=== PATIENT | female | born 1995 | race Caucasian/White ===

== ENCOUNTER 2022-11-11 10:40 | Outpatient (OUT) | payer OTHER, SELFPAY ==
--- NOTE | 2022-11-11 10:49 | US_ITS ---
[address] [address] Patient Name: ALE TRINH MRN: [id number] date: 1995 Sex: F Assigned Patient Location: [facility] Current Patient Location: [facility] Accession/Order Number: [id number] Exam Date: 11/11/2022 11:00 Report Date: 11/11/2022 11:49 At the request of: ROBIN HAYS Procedure: US OB BPP w non-stress EXAM: US OB BPP w non-stress HISTORY: decreased movement COMPARISON: Ultrasound growth 11/04/2022 TECHNIQUE: Transabdominal sonographic evaluation. BREATHING MOVEMENTS: 2.0 GROSS BODY MOVEMENTS: 2.0 TONE: 2.0 QUALITATIVE AMNIOTIC FLUID VOLUME: 2.0 PRESENTATION: CEPHALIC HEART RATE: 143.6 bpm bpm. AMNIOTIC FLUID VOLUME: 11.8 cm GESTATIONAL AGE: 36 weeks 0 days CONCLUSION: Total biophysical profile score 8.0. Electronically authenticated by: KIT AUSTIN Date: 11/11/2022 11:49
[2022-11-11 10:52] VITALS: BP 129/80; PULSE 101; RESP 18; TEMP 36.8
[2022-11-11 10:53] VITALS: BP 139/99; PULSE 93
[2022-11-11 10:55] VITALS: BP 129/80; PULSE 101
== END 2022-11-11 11:05 | disposition home or self-care (01) ==
LOC: FBC 11:52 → LAB 11-12 12:53
PROVIDERS: PCP Internal Medicine Cardiovascular Disease; Visit Provider Obstetrics & Gynecology
DX: O36.8130 Decreased fetal movements, third trimester, not applicable or unspecified (principal); Z3A.35 35 weeks gestation of pregnancy
CPT/HCPCS: 59025; 76818; 87081

== ENCOUNTER 2022-11-11 22:35 | Outpatient (REF) | payer OTHER, SELFPAY | END 2022-11-11 22:36 | disposition home or self-care (01) | LOC: LAB 22:35 | PROVIDERS: PCP Internal Medicine Cardiovascular Disease; Visit Provider Obstetrics & Gynecology | DX: Z34.93 Encounter for supervision of normal pregnancy, unspecified, third trimester (principal) | CPT/HCPCS: 87081 ==

== ENCOUNTER 2022-11-17 05:20 | Observation (INO) | payer OTHER, SELFPAY ==
[2022-11-17 05:43] VITALS: BP 137/82; PULSE 107
[2022-11-17 06:19] LABS: Bilirubin Urine NEGATIVE (NEGATIVE); Blood Urine TRACE-I (NEGATIVE); Clarity Urine CLEAR (CLEAR); Color Urine LT. YELLOW (YELLOW); Glucose Urine UA NEGATIVE (NEGATIVE); Ketones Urine NEGATIVE (NEGATIVE); Leukocyte Esterase Urine SMALL (NEGATIVE); Nitrite Urine NEGATIVE (NEGATIVE); Protein Urine NEGATIVE (NEG/TRACE); Specific Gravity Urine <=1.005 (1.005-1.025); Urine Microscopic Indicated YES; Urobilinogen Urine 0.2 EU/dL (0.2-1.0)
[2022-11-17 06:28] LABS: Bacteria Urine NONE SEEN #/HPF (NONE SEEN); Crystals Seen? None Seen #/HPF (None Seen); Mucus Urine NONE SEEN (NONE SEEN); RBC Urine 0-2 #/HPF (0-2); Squamous Epithelial Cell Urine MODERATE #/LPF (NONE/RARE)
[2022-11-17 06:29] LABS: Cast Seen? NONE SEEN #/LPF (NONE SEEN); Urine Culture Indicated YES
--- NOTE | 2022-11-17 08:27 | W.PC.ACHO ---
Registration Status: ADM IN Primary Language: Preferred Language: Active Medications Generic Name Dose Route Start Last Admin Trade Name Dimitris PRN Reason Stop Dose Admin Carboprost Tromethamine 250 mcg 11/17/22 06:51 Carboprost Tromethamine 250 Mcg/Ml 1 Ml Vial IM Q15M PRN Bleeding Sodium Chloride 1,000 mls @ 125 mls/hr 11/17/22 07:00 Sodium Chloride 0.9% 1,000 Ml IV .Q8H MARÍA Oxytocin 10 unit/ Sodium 501 mls @ 6.012 mls/hr 11/17/22 07:00 Chloride IV Q24H MARÍA 2 MILLIUNIT/MIN Lidocaine 5 ml 11/17/22 06:51 Lidocaine Viscous 2% 15 Ml Topical Solution TOPICAL ONCE PRN Pain Lidocaine 1 ml 11/17/22 06:51 Lidocaine Hcl 1% 200 Mg/20 Ml Mdv INJ ONCE PRN Pain Methylergonovine Maleate 0.2 mg 11/17/22 06:51 Methylergonovine Maleate 0.2 Mg/Ml Ampule IM ONCE PRN Uterine Contractility/Contract Methylergonovine Maleate 0.2 mg 11/17/22 06:51 Methylergonovine Maleate 0.2 Mg Tablet PO Q4H PRN Uterine Contractility/Contract Misoprostol 600 mcg 11/17/22 06:51 Misoprostol 100 Mcg Tablet PO ONCE PRN Uterine Bleeding Misoprostol 800 mcg 11/17/22 06:51 Misoprostol 100 Mcg Tablet SL ONCE PRN Uterine Bleeding Misoprostol 1,000 mcg 11/17/22 06:51 Misoprostol 100 Mcg Tablet [place] ONCE PRN Uterine Bleeding Nalbuphine HCl 10 mg 11/17/22 06:51 Nalbuphine Hcl 10 Mg/Ml Ampule IV Q3H PRN Pain Ondansetron HCl 4 mg 11/17/22 06:51 Ondansetron Pf 4 Mg/2 Ml Vial IV Q6H PRN Nausea And Vomiting Ondansetron HCl 4 mg 11/17/22 06:51 Ondansetron 4 Mg Rapdis Tablet SL Q6H PRN Nausea And Vomiting Oxytocin 10 unit 11/17/22 06:51 Oxytocin 100 Unit/10 Ml Vial IM ONCE PRN Uterine Bleeding Diet Category Date Time Status Clear Liquid Diet Diet 11/17/22 Breakfast Active Consults Category Date Time Status Consult to Anesthesiology Routine Cons 11/17/22 Ordered
--- NOTE | 2022-11-17 08:31 | PC.NURSE ---
0720 EFM off, up to BR and then transferred to room 255 with belongings and family. Discussed level of comfort, pt states contractions spacing out. Reviewed gestational age and labor signs and discussed if pt would like to walk or use other comfort measures, states would like to nap.
--- NOTE | 2022-11-17 09:03 | PC.NURSE ---
1944 dr villela calls in and updated, states to allow pt to sleep will see if is truly laboring as time progresses
--- NOTE | 2022-11-17 09:58 | PC.NURSE ---
0974 pt continues to sleep
[2022-11-17 10:31] VITALS: BP 160/112; PULSE 94
[2022-11-17 10:44] VITALS: TEMP 36.3
[2022-11-17 10:46] VITALS: BP 159/89; PULSE 96
[2022-11-17 11:12] LABS: Amphetamine Screen Urine NEGATIVE (NEGATIVE); Barbiturates Screen Urine NEGATIVE (NEGATIVE); Benzodiazepines Screen Urine NEGATIVE (NEGATIVE); Buprenorphine Screen Urine NEGATIVE (NEGATIVE); Cannabinoid Screen Urine NEGATIVE (NEGATIVE); Cocaine Screen Urine NEGATIVE (NEGATIVE); Methadone Screen Urine NEGATIVE (NEGATIVE); Methamphetamines Screen Urine NEGATIVE (NEGATIVE); Opiate Screen Urine NEGATIVE (NEGATIVE); Oxycodone Screen Urine NEGATIVE (NEGATIVE); Phencyclidine Screen Urine NEGATIVE (NEGATIVE); Tricyclic Antidepressant Urine NEGATIVE (NEGATIVE)
[2022-11-17 11:47] VITALS: BP 114/56; PULSE 89
== END 2022-11-17 12:20 | disposition home or self-care (01) ==
PROVIDERS: Admitting Provider Obstetrics & Gynecology; PCP Internal Medicine Cardiovascular Disease; Visit Provider Obstetrics & Gynecology
DX: O47.9 False labor, unspecified (principal); O30.009 Twin pregnancy, unspecified number of placenta and unspecified number of amniotic sacs, unspecified trimester; Z3A.00 Weeks of gestation of pregnancy not specified
CPT/HCPCS: 80307; 81003; 81015; 85027; 86850; 86900; 86901; 87086; G0378; G0379

== ENCOUNTER 2022-11-24 12:38 | Inpatient (IN) | payer OTHER, SELFPAY ==
[2022-11-24] VITALS (37 sets, daily range): BP systolic 118–190; BP diastolic 57–104; PULSE 81–116; RESP 16; TEMP 36.4–36.7
[2022-11-24 13:17] LABS: Hematocrit 38.9 % (36.0-48.0); Hemoglobin 13.2 g/dL (12.0-16.0); Mean Corpuscular HGB Conc 33.9 g/dL (29.9-35.2); Mean Corpuscular Hemoglobin 31.6 pg (26.7-34.0); Mean Corpuscular Volume 93.1 fL (81.0-99.0); Platelet Count 218 10^3/uL (150-450); Red Blood Count 4.18 10^6/uL (4.20-5.40); Red Cell Distribution Width 14.5 % (11.0-15.0); White Blood Count 14.7 10^3/uL (4.0-11.0)
[2022-11-24 13:33] LABS: Amphetamine Screen Urine NEGATIVE (NEGATIVE); Barbiturates Screen Urine NEGATIVE (NEGATIVE); Benzodiazepines Screen Urine NEGATIVE (NEGATIVE); Buprenorphine Screen Urine NEGATIVE (NEGATIVE); Cannabinoid Screen Urine NEGATIVE (NEGATIVE); Cocaine Screen Urine NEGATIVE (NEGATIVE); Methadone Screen Urine NEGATIVE (NEGATIVE); Methamphetamines Screen Urine NEGATIVE (NEGATIVE); Opiate Screen Urine NEGATIVE (NEGATIVE); Oxycodone Screen Urine NEGATIVE (NEGATIVE); Phencyclidine Screen Urine NEGATIVE (NEGATIVE); Tricyclic Antidepressant Urine NEGATIVE (NEGATIVE)
[2022-11-24] MEDS: 0.9 % SODIUM CHLORIDE 1,000 ML 1000 ML IV (13:43)
[2022-11-24] MEDS: FENTANYL CITRATE/PF 100 MCG/2 ML VIAL EPIDURAL (14:57)
[2022-11-24] MEDS: 0.9 % SODIUM CHLORIDE 1,000 ML 125 ML IV (14:58)
[2022-11-24] MEDS: ROPIVACAINE HCL/PF 400 MG/200 ML PREMIX 6 MG EPIDURAL (14:58)
--- NOTE | 2022-11-24 17:48 | PM.OBPRCVD ---
Procedure Intrapartal events: None Induction method: none Delivery augmentation: rupture of membranes Delivery monitor: external FHT and external uterine Route of delivery: Episiotomy Description: none Laceration description: none Estimated blood loss (mL): 200 Anesthesia type: Epidural Disposition: floor Delivery date: 11/24/22 Gender: male presentation: vertex Placental delivery description: Spontaneous cord description: 3 Vessels
--- NOTE | 2022-11-24 19:25 | W.PC.ACHO ---
Registration Status: ADM IN Primary Language: [place] Preferred Language: [place] Report given to Alissa Torres RN. Active Medications Generic Name Dose Route Start Last Admin Trade Name Freq PRN Reason Stop Dose Admin Acetaminophen 650 mg 11/24/22 17:49 Acetaminophen 325 Mg Tablet PO Q6H PRN Mild Pain Al Hydroxide/Mg Hydroxide 2,400 mg 11/24/22 17:49 Magnesium Hydroxide 2,400 Mg/10 Ml Oral.Susp PO Q6H PRN Dyspepsia Benzocaine/Menthol 1 applic 11/24/22 17:49 Benzocaine/Menthol 85 Gram Bottle TOPICAL Q4H PRN Pain Carboprost Tromethamine 250 mcg 11/24/22 12:53 Carboprost Tromethamine 250 Mcg/Ml 1 Ml Vial IM Q15M PRN Bleeding Diphenhydramine HCl 25 mg 11/24/22 13:32 Diphenhydramine Hcl 50 Mg/Ml (1ml) Vial IV Q6H PRN Itching Docusate Sodium 100 mg 11/25/22 09:00 Docusate Sodium 100 Mg Capsule PO BID AMRÍA Ephedrine Sulfate 5 mg 11/24/22 13:32 Ephedrine Sulfate 50 Mg/Ml Vial IV Q5M PRN Blood Pressure - Low Fentanyl Citrate 100 mcg 11/24/22 13:32 11/24/22 14:57 Fentanyl Citrate/Pf 100 Mcg/2 Ml Vial EPIDURAL 100 mcg Q4H PRN Administration Pain Sodium Chloride 1,000 mls @ 125 mls/hr 11/24/22 13:00 11/24/22 14:58 Sodium Chloride 0.9% 1,000 Ml IV 125 mls/hr .Q8H MARÍA Administration Oxytocin 10 unit/ Sodium 501 mls @ 6.012 mls/hr 11/24/22 13:00 Chloride IV Q24H MARÍA 2 MILLIUNIT/MIN Oxytocin 20 unit/ Sodium 1,002 mls @ 125 mls/hr 11/24/22 13:00 Chloride IV ONCE PRN Bleeding Protocol Ropivacaine/Sodium Chloride 400 mg in 200 mls @ 6 mls/hr 11/24/22 13:45 11/24/22 14:58 Naropin 0.2% 400 Mg/200 Ml Bag EPIDURAL 6 mls/hr Q24H MARÍA 6 mls/hr Administration Oxytocin 20 unit/ Sodium 1,002 mls @ 125 mls/hr 11/24/22 18:00 Chloride IV 11/25/22 01:59 Q8H MARÍA Ibuprofen 600 mg 11/24/22 17:49 Ibuprofen 600 Mg Tablet PO Q6H PRN Moderate Pain Lidocaine 5 ml 11/24/22 12:53 Lidocaine Viscous 2% 15 Ml Topical Solution TOPICAL Q5M PRN Pain Lidocaine 1 ml 11/24/22 13:08 Lidocaine Hcl 1% 200 Mg/20 Ml Mdv INJ ONCE PRN Pain Lidocaine 5 ml 11/24/22 13:32 Lidocaine Hcl 2% Pf 100 Mg/5 Ml Vial INJ Q1H PRN Pain Methylergonovine Maleate 0.2 mg 11/24/22 12:53 Methylergonovine Maleate 0.2 Mg Tablet PO Q4H PRN Uterine Contractility/Contract Methylergonovine Maleate 0.2 mg 11/24/22 12:53 Methylergonovine Maleate 0.2 Mg/Ml Ampule IM ONCE PRN Uterine Contractility/Contract Misoprostol 600 mcg 11/24/22 12:53 Misoprostol 100 Mcg Tablet PO ONCE PRN Uterine Bleeding Misoprostol 800 mcg 11/24/22 12:53 Misoprostol 100 Mcg Tablet SL ONCE PRN Uterine Bleeding Misoprostol 1,000 mcg 11/24/22 12:53 Misoprostol 100 Mcg Tablet GA ONCE PRN Uterine Bleeding Nalbuphine HCl 10 mg 11/24/22 12:53 Nalbuphine Hcl 10 Mg/Ml Ampule IV Q3H PRN Pain Ondansetron HCl 4 mg 11/24/22 12:53 Ondansetron Pf 4 Mg/2 Ml Vial IV Q6H PRN Nausea And Vomiting Ondansetron HCl 4 mg 11/24/22 12:53 Ondansetron 4 Mg Rapdis Tablet SL Q6H PRN Nausea And Vomiting Oxytocin 10 unit 11/24/22 12:53 Oxytocin 100 Unit/10 Ml Vial IM ONCE PRN Uterine Bleeding Senna 17.2 mg 11/24/22 20:00 Sennosides 8.6 Mg Tablet PO QHS PRN Constipation Simethicone 80 mg 11/24/22 17:49 Simethicone 80 Mg Tab.Chew PO QID PRN Abdominal Distention Temazepam 15 mg 11/24/22 20:00 Temazepam 15 Mg Capsule PO BEDTIME PRN Sleep Witch Meghan/Glycerin 1 each 11/24/22 17:49 Glycerin/Witch Meghan 1 Each Jar TOPICAL Q6H PRN Pain Diet Category Date Time Status Regular Consistency Diet Diet 11/24/22 Dinner Active Consults Category Date Time Status Consult to Anesthesiology Routine Cons 11/24/22 Ordered IV Insertion/Site Date of IV Line Insertion [18g 11/24/22 right Hand] IV Insertion Time [18g right 13:05 Hand] Neurology Patient orientation (short person,place,time,situation list) Catheter Date Urinary Catheter Removed 11/24/22 Date Urinary Catheter Removed 11/24/22 Date Urinary Catheter Removed 11/24/22 Date Urinary Catheter Removed 11/24/22 Date Urinary Catheter Removed 11/24/22
[2022-11-24] MEDS: ACETAMINOPHEN 325 MG TABLET 650 MG PO (20:10)
--- NOTE | 2022-11-24 22:08 | PC.NURSE ---
Small amount of bleeding noted.
--- NOTE | 2022-11-24 22:10 | PC.NURSE ---
Small amount of bleeding noted, no clots.
--- NOTE | 2022-11-24 22:11 | PC.NURSE ---
Epidural catheter removed at this time. Small bleeding noted, no clots. Attempt made to get patient up to bathroom. Patient stands at bedside but unable to take steps to bathroom. States when standing legs feeling tingly. Patient assisted safely back into bed. Educated to let this RN know when ready to get up, patient agrees.
[2022-11-24] MEDS: IBUPROFEN 600 MG TABLET PO (23:50)
[2022-11-25] MEDS: ACETAMINOPHEN 325 MG TABLET 650 MG PO (02:46)
--- NOTE | 2022-11-25 04:42 | W.PC.ACHO ---
Registration Status: ADM IN Primary Language: Bahamian Preferred Language: Bahamian Active Medications Report Given Generic Name Dose Route Start Last Admin Trade Name Freq PRN Reason Stop Dose Admin Acetaminophen 650 mg 11/24/22 17:49 11/25/22 02:46 Acetaminophen 325 Mg Tablet PO 650 mg Q6H PRN Administration Mild Pain Al Hydroxide/Mg Hydroxide 2,400 mg 11/24/22 17:49 Magnesium Hydroxide 2,400 Mg/10 Ml Oral.Susp PO Q6H PRN Dyspepsia Benzocaine/Menthol 1 applic 11/24/22 17:49 Benzocaine/Menthol 85 Gram Bottle TOPICAL Q4H PRN Pain Carboprost Tromethamine 250 mcg 11/24/22 12:53 Carboprost Tromethamine 250 Mcg/Ml 1 Ml Vial IM Q15M PRN Bleeding Diphenhydramine HCl 25 mg 11/24/22 13:32 Diphenhydramine Hcl 50 Mg/Ml (1ml) Vial IV Q6H PRN Itching Docusate Sodium 100 mg 11/25/22 09:00 Docusate Sodium 100 Mg Capsule PO BID MARÍA Ephedrine Sulfate 5 mg 11/24/22 13:32 Ephedrine Sulfate 50 Mg/Ml Vial IV Q5M PRN Blood Pressure - Low Fentanyl Citrate 100 mcg 11/24/22 13:32 11/24/22 14:57 Fentanyl Citrate/Pf 100 Mcg/2 Ml Vial EPIDURAL 100 mcg Q4H PRN Administration Pain Sodium Chloride 1,000 mls @ 125 mls/hr 11/24/22 13:00 11/24/22 14:58 Sodium Chloride 0.9% 1,000 Ml IV 125 mls/hr .Q8H MARÍA Administration Oxytocin 10 unit/ Sodium 501 mls @ 6.012 mls/hr 11/24/22 13:00 Chloride IV Q24H MARÍA 2 MILLIUNIT/MIN Oxytocin 20 unit/ Sodium 1,002 mls @ 125 mls/hr 11/24/22 13:00 Chloride IV ONCE PRN Bleeding Protocol Ropivacaine/Sodium Chloride 400 mg in 200 mls @ 6 mls/hr 11/24/22 13:45 11/24/22 14:58 Naropin 0.2% 400 Mg/200 Ml Bag EPIDURAL 6 mls/hr Q24H MARÍA 6 mls/hr Administration Ibuprofen 600 mg 11/24/22 17:49 11/24/22 23:50 Ibuprofen 600 Mg Tablet PO 600 mg Q6H PRN Administration Moderate Pain Lidocaine 5 ml 11/24/22 12:53 Lidocaine Viscous 2% 15 Ml Topical Solution TOPICAL Q5M PRN Pain Lidocaine 1 ml 11/24/22 13:08 Lidocaine Hcl 1% 200 Mg/20 Ml Mdv INJ ONCE PRN Pain Lidocaine 5 ml 11/24/22 13:32 Lidocaine Hcl 2% Pf 100 Mg/5 Ml Vial INJ Q1H PRN Pain Methylergonovine Maleate 0.2 mg 11/24/22 12:53 Methylergonovine Maleate 0.2 Mg Tablet PO Q4H PRN Uterine Contractility/Contract Methylergonovine Maleate 0.2 mg 11/24/22 12:53 Methylergonovine Maleate 0.2 Mg/Ml Ampule IM ONCE PRN Uterine Contractility/Contract Misoprostol 600 mcg 11/24/22 12:53 Misoprostol 100 Mcg Tablet PO ONCE PRN Uterine Bleeding Misoprostol 800 mcg 11/24/22 12:53 Misoprostol 100 Mcg Tablet SL ONCE PRN Uterine Bleeding Misoprostol 1,000 mcg 11/24/22 12:53 Misoprostol 100 Mcg Tablet [place] ONCE PRN Uterine Bleeding Nalbuphine HCl 10 mg 11/24/22 12:53 Nalbuphine Hcl 10 Mg/Ml Ampule IV Q3H PRN Pain Ondansetron HCl 4 mg 11/24/22 12:53 Ondansetron Pf 4 Mg/2 Ml Vial IV Q6H PRN Nausea And Vomiting Ondansetron HCl 4 mg 11/24/22 12:53 Ondansetron 4 Mg Rapdis Tablet SL Q6H PRN Nausea And Vomiting Oxytocin 10 unit 11/24/22 12:53 Oxytocin 100 Unit/10 Ml Vial IM ONCE PRN Uterine Bleeding Senna 17.2 mg 11/24/22 20:00 Sennosides 8.6 Mg Tablet PO QHS PRN Constipation Simethicone 80 mg 11/24/22 17:49 Simethicone 80 Mg Tab.Chew PO QID PRN Abdominal Distention Temazepam 15 mg 11/24/22 20:00 Temazepam 15 Mg Capsule PO BEDTIME PRN Sleep Witch Meghan/Glycerin 1 each 11/24/22 17:49 Glycerin/Witch Meghan 1 Each Jar TOPICAL Q6H PRN Pain Diet Category Date Time Status Regular Consistency Diet Diet 11/24/22 Dinner Active IV Insertion/Site Date of IV Line Insertion [18g 11/24/22 right Hand] IV Insertion Time [18g right 13:05 Hand] Neurology Patient orientation (short person,place,time,situation list) [place] coma scale total score 15 Lily coma scale total score 15 Respiratory Oxygen Delivery Method Room Air Oxygen Delivery Method Room Air Oxygen Delivery Method Room Air Bowels Bowel Pattern No Bowel Movement Bowel Pattern No Bowel Movement Renal Bladder Pattern Continent Bladder Pattern Continent Catheter Date Urinary Catheter Removed 11/24/22 Date Urinary Catheter Removed 11/24/22 Date Urinary Catheter Removed 11/24/22 Date Urinary Catheter Removed 11/24/22 Date Urinary Catheter Removed 11/24/22 Date Urinary Catheter Removed 11/24/22 Date Urinary Catheter Removed 11/24/22 Date Urinary Catheter Removed 11/24/22
[2022-11-25 06:15] VITALS: BP 149/84; PULSE 76
[2022-11-25 08:00] VITALS: TEMP 36.4
[2022-11-25 08:38] VITALS: BP 144/91; PULSE 85
[2022-11-25 10:52] VITALS: RESP 18
[2022-11-25 10:56] VITALS: TEMP 36.8
[2022-11-25 12:25] VITALS: BP 135/71; PULSE 77
--- NOTE | 2022-11-25 13:11 | PM.OBPN ---
OB - PN: Subj Subjective Patient comments: no complaints and pain well controlled Exam Constitutional Vital Signs - 24 hr 11/24/22 14:02 11/24/22 14:43 11/24/22 14:46 Temperature Pulse Rate 91 H 95 H 94 H Respiratory Rate Blood Pressure 137/78 H 190/100 H 154/95 H Blood Pressure [Left Radial Artery] Oxygen Delivery Method 11/24/22 14:49 11/24/22 14:52 11/24/22 14:56 Temperature Pulse Rate 105 H 96 H 90 Respiratory Rate Blood Pressure 154/78 H 152/89 H 142/82 H Blood Pressure [Left Radial Artery] Oxygen Delivery Method 11/24/22 15:01 11/24/22 15:04 11/24/22 15:07 Temperature Pulse Rate 89 88 87 Respiratory Rate Blood Pressure 137/79 H 136/76 H 138/78 H Blood Pressure [Left Radial Artery] Oxygen Delivery Method 11/24/22 15:10 11/24/22 15:13 11/24/22 15:16 Temperature Pulse Rate 83 81 81 Respiratory Rate Blood Pressure 136/73 H 128/72 H 131/73 H Blood Pressure [Left Radial Artery] Oxygen Delivery Method 11/24/22 15:19 11/24/22 15:22 11/24/22 15:25 Temperature Pulse Rate 86 86 Respiratory Rate Blood Pressure 133/70 H 130/67 H 131/69 H Blood Pressure [Left Radial Artery] Oxygen Delivery Method 11/24/22 15:41 11/24/22 15:57 11/24/22 16:12 Temperature Pulse Rate 91 H 91 H 110 H Respiratory Rate Blood Pressure 126/65 H 129/73 H 122/59 H Blood Pressure [Left Radial Artery] Oxygen Delivery Method 11/24/22 16:26 11/24/22 16:41 11/24/22 16:57 Temperature Pulse Rate 110 H 105 H 101 H Respiratory Rate Blood Pressure 118/58 L 123/62 H 120/70 H Blood Pressure [Left Radial Artery] Oxygen Delivery Method 11/24/22 17:12 11/24/22 17:27 11/24/22 17:56 Temperature Pulse Rate 88 116 H 110 H Respiratory Rate Blood Pressure 122/57 H 141/82 H 123/61 H Blood Pressure [Left Radial Artery] Oxygen Delivery Method 11/24/22 18:11 11/24/22 18:26 11/24/22 18:41 Temperature Pulse Rate 97 H 88 92 H Respiratory Rate Blood Pressure 123/58 H 128/64 H 125/64 H Blood Pressure [Left Radial Artery] Oxygen Delivery Method 11/24/22 18:57 11/24/22 19:11 11/24/22 19:26 Temperature Pulse Rate 90 89 84 Respiratory Rate Blood Pressure 137/73 H 141/69 H 154/73 H Blood Pressure [Left Radial Artery] Oxygen Delivery Method 11/24/22 19:34 11/24/22 23:49 11/25/22 06:15 Temperature Pulse Rate 100 H 86 76 Respiratory Rate Blood Pressure 143/92 H 154/87 H 149/84 H Blood Pressure [Left Radial Artery] Oxygen Delivery Method 11/25/22 08:38 11/25/22 12:25 11/24/22 13:21 Temperature 98.0 F Pulse Rate 85 77 Respiratory Rate Blood Pressure 144/91 H 135/71 H Blood Pressure [Left Radial Artery] Oxygen Delivery Method 11/24/22 19:45 11/24/22 19:45 11/24/22 23:50 Temperature 97.6 F Pulse Rate Respiratory Rate 16 16 Blood Pressure Blood Pressure [Left Radial Artery] Oxygen Delivery Method Room Air Room Air 11/24/22 23:50 11/25/22 10:52 11/25/22 10:56 Temperature 97.8 F 98.2 F Pulse Rate 86 Respiratory Rate 16 18 Blood Pressure Blood Pressure [Left Radial Artery] 154/87 H Oxygen Delivery Method Room Air Documenting provider has reviewed patient's vital signs: yes Common normals: no apparent distress Respiratory Common normals: normal respiratory effort and clear to auscultation bilaterally Cardio Common normals: regular rate and regular rhythm GI Common normals: Normal to inspection, nondistended, normoactive bowel sounds present Extremity Common normals: normal to inspection, no clubbing, cyanosis or edema and no calf tenderness Results Labs Labs: Short CBC 11/24/22 Range/Units 13:05 WBC 14.7 H (4.0-11.0) 10^3/uL Hgb 13.2 (12.0-16.0) g/dL Hct 38.9 (36.0-48.0) % Plt Count 218 (150-450) 10^3/uL OB - PN: A/P Plan - Vaginal Delivery day: 1 Plan: routine care, discharge home and follow up 6 weeks Time Spent with Patient Time: Total time spent is greater than 50% in coordination of care (as documented) at patient's floor/unit and/or counseling patient: Total time spent with greater than 50% in coordination of care (as documented) at patient's floor/unit and/or counseling patient: less than 15 minutes
== END 2022-11-25 14:44 | disposition home or self-care (01) | DRG 560 ==
PROVIDERS: Admitting Provider Obstetrics & Gynecology; PCP Internal Medicine Cardiovascular Disease; Visit Provider Obstetrics & Gynecology
DX: O80 Encounter for full-term uncomplicated delivery (principal); Z37.0 Single live birth; Z3A.00 Weeks of gestation of pregnancy not specified
CPT/HCPCS: 36415; 59050; 59410; 80307; 85025; 85027; 86850; 86900; 86901; 96374